=== PATIENT | female | born 1965 | race Caucasian/White ===

== ENCOUNTER → 2019-06-26 17:23 | Outpatient (CLI) | payer BC, SELFPAY ==
--- NOTE | ~2019-06-26 | MM_ITS ---
EXAMINATION: MM screening neal BI w torres HISTORY: Screening mammogram TECHNIQUE: Craniocaudal and mediolateral oblique 3-D tomosynthesis images were obtained and synthetic 2-D images were generated. CAD analysis was submitted and interpreted. COMPARISON: 04/25/2018, 11/24/2016, 12/03/2015 bilateral digital screening mammogram examinations BREAST PARENCHYMAL COMPOSITION: There are scattered areas of fibroglandular density. FINDINGS: There is no evidence of suspicious mass, calcification, or architectural distortion to sugg est malignancy in either breast. There has been no suspicious interval change. IMPRESSION: 1. No mammographic evidence of malignancy. 2. Recommend routine screening mammography in one year. BI-RADS Category 1: Negative Reviewed, dictated and finalized at location A.
== END ==
PROVIDERS: Visit Provider Obstetrics & Gynecology
DX: Z12.31 Encounter for screening mammogram for malignant neoplasm of breast (principal)
CPT/HCPCS: 77063; 77067

== ENCOUNTER → 2020-09-28 16:19 | Outpatient (CLI) | payer BC, SELFPAY ==
--- NOTE | ~2020-09-28 | MM_ITS ---
EXAMINATION: MM screening neal BI w torres HISTORY: Screening mammogram, family history of breast cancer in her mother. TECHNIQUE: Craniocaudal and mediolateral oblique 3-D tomosynthesis images were obtained and synthetic 2-D images were generated. CAD analysis was submitted and interpreted. COMPARISON: 06/26/2019, 04/25/2018, 1117 BREAST PARENCHYMAL COMPOSITION: There are scattered areas of fibroglandular density. FINDINGS: Scattered benign-appearing calcifications are present. There is no evidence of suspicious m ass, calcification, or architectural distortion to suggest malignancy in either breast. There has bee n no suspicious interval change. IMPRESSION: 1. No mammographic evidence of malignancy. 2. Recommend routine screening mammography in one year. BI-RADS Category 2: Benign finding(s). Reviewed, dictated and finalized at location A.
== END ==
PROVIDERS: Visit Provider Obstetrics & Gynecology
DX: Z12.31 Encounter for screening mammogram for malignant neoplasm of breast (principal)
CPT/HCPCS: 77063; 77067

== ENCOUNTER → 2021-04-01 10:04 | Outpatient (CLI) | payer BC, SELFPAY ==
--- NOTE | ~2021-04-01 | XR_ITS ---
EXAMINATION: XR ankle LT min 3V DATE: 04/01/2021 10:25 INDICATION: Left ankle pain, initial encounter TECHNIQUE: Anteroposterior, lateral, mortise, and additional oblique view of the ankle were obtained. COMPARISON: None. FINDINGS: There is linear heterotopic ossification projecting distal to the lateral malleolus. Ankle alignment is normal. There is mild lateral soft tissue swelling the ankle. Posterior and plantar calc aneal enthesophytes are noted. IMPRESSION: 1. Findings consistent with avulsion injury of the lateral malleolus. Reviewed, dictated and finalized at location A. GE ENGINEER
== END ==
DX: M25.572 Pain in left ankle and joints of left foot (principal)
CPT/HCPCS: 73610

== ENCOUNTER → 2021-11-30 14:23 | Outpatient (CLI) | payer BC, SELFPAY ==
--- NOTE | ~2021-11-30 | MM_ITS ---
EXAMINATION: MM screening neal BI w torres HISTORY: Screening mammogram TECHNIQUE: Craniocaudal and mediolateral oblique 3-D tomosynthesis images were obtained and synthetic 2-D images were generated. CAD analysis was submitted and interpreted. COMPARISON: 09/28/2020, 06/26/2019, 04/25/2018 bilateral screening mammogram examinations BREAST PARENCHYMAL COMPOSITION: There are scattered areas of fibroglandular density. FINDINGS: Stable mild fibroglandular asymmetry. Occasional benign calcifications. There is no evidenc e of suspicious mass, calcification, or architectural distortion to suggest malignancy in either [address]. There has been no suspicious interval change. IMPRESSION: 1. No mammographic evidence of malignancy. 2. Recommend routine screening mammography in one year. BI-RADS Category 1: Negative Reviewed, dictated and finalized at location A.
== END ==
PROVIDERS: PCP Obstetrics & Gynecology; Visit Provider Obstetrics & Gynecology
DX: Z12.31 Encounter for screening mammogram for malignant neoplasm of breast (principal)
CPT/HCPCS: 77063; 77067

== ENCOUNTER → 2022-08-01 10:44 | Outpatient (CLI) | payer BC, SELFPAY ==
--- NOTE | ~2022-08-01 | MR_ITS ---
MRI of the right knee Clinical history: Pain Technique: Coronal proton density and proton density-weighted images, sagittal proton-density and T2 fat-sat images, and axial proton-density fat-saturated images were acquired. Findings: Anterior and posterior cruciate ligaments are intact. Medial collateral ligament and the la teral collateral ligament complex are intact. Popliteus tendon is intact. Medial and lateral menisci are intact, without evidence of tear. Articular cartilage is well preserved in the medial lateral compartments, and along the femoral troch suni. There is moderate chondromalacia patella. Bone marrow signals are unremarkable. Extensor mechanism is intact. Small joint effusion present. No Duong's cyst. Impression: Moderate chondromalacia patella. Small joint effusion. Reviewed, dictated and finalized at location . Impression: Moderate chondromalacia patella. Small joint effusion.
== END ==
DX: M25.461 Effusion, right knee (principal); M22.41 Chondromalacia patellae, right knee; G89.29 Other chronic pain
CPT/HCPCS: 73721

== ENCOUNTER 2023-09-13 14:46 | Outpatient (CLI) | payer BC, SELFPAY ==
--- NOTE | ~2023-09-13 | XR_ITS ---
EXAM: XR hip RT min 2V DATE: 09/13/2023 15:34 HISTORY: Right hip pain . COMPARISON: None available. FINDINGS: Normal mineralization. No fracture or dislocation. No lytic or blastic lesion. Mild superi or right hip joint space narrowing. No erosion or periosteal change. Soft tissues within normal limit s. Pelvic lists. IMPRESSION: Mild right hip osteoarthritis. Reviewed, dictated and finalized at location K.
== END 2023-09-13 14:47 ==
DX: M16.11 Unilateral primary osteoarthritis, right hip (principal)
CPT/HCPCS: 73502

== ENCOUNTER 2023-10-31 10:21 | Outpatient (CLI) | payer BC, SELFPAY ==
--- NOTE | ~2023-10-31 | MR_ITS ---
MRI of the right hip Clinical history: Pain Technique: Coronal T1-weighted, T2-weighted, and proton-density fat-sat images, and axial T1-weighted and proton-density fat-sat images were acquired through the pelvis. Coronal T2-weighted images and c oronal, axial, and sagittal proton-density fat-sat images were acquired through the right hip. Findings: There is no fracture or avascular necrosis of either hip. Bone marrow signals of the proxim al femora and pelvic bones are unremarkable. Bilateral hip joint spaces are preserved. Articular cart ilage is relatively well-preserved. No joint effusion seen. No right acetabular labral tear identifie d. No joint effusion. There is probable tendinosis of the right gluteus medius and minimus tendons with early/mild trochant sully bursitis. There is superimposed focal moderate tear of the distal right gluteus medius tendon. N o muscle atrophy or edema present otherwise. IMPRESSION: Probable tendinosis of the right gluteus medius and minimus tendons with moderate grade partial tear of the distal gluteus medius tendon, and associated early/mild right greater trochanteric bursitis. Reviewed, dictated and finalized at location M. IMPRESSION: Probable tendinosis of the right gluteus medius and minimus tendons with modera te grade partial tear of the distal gluteus medius tendon, and associated early /mild right greater trochanteric bursitis.
== END 2023-10-31 10:22 ==
LOC: MICIMG 10:23
DX: M25.551 Pain in right hip (principal)
CPT/HCPCS: 73721

== ENCOUNTER 2023-12-08 10:41 | Outpatient (CLI) | payer BC, SELFPAY ==
--- NOTE | ~2023-12-08 | MR_ITS ---
EXAMINATION: MR knee LT wo con DATE: 12/08/2023 11:30 INDICATION: Left knee pain. Fall. TECHNIQUE: Magnetic resonance imaging (MRI) of the left knee was performed without intravenous contra st. Sequences included axial PD-weighted FS FSE, coronal PD-weighted FSE and PD-weighted FS FSE, sagi ttal PD-weighted FSE, and sagittal T2-weighted FS FSE. COMPARISON: None. FINDINGS: Medial compartment: Medial meniscus is normal. There is shallow partial-thickness cartilage loss of femoral condyle and t ibial condyle. Lateral compartment: There is an undersurface horizontal tear of body of lateral meniscus. There is partial-thickness cart ilage loss of tibial condyle, deep at the central articular surface. There is shallow partial-thickne ss cartilage loss of femoral condyle. Osteophytes are noted. Patellofemoral compartment: There is cartilage surface irregularity of patella and trochlea. Tiny osteophytes are noted. Ligaments and tendons: The anterior and posterior cruciate ligaments are normal. There are changes of prior sprains of media l collateral ligament and fibular collateral ligament characterized by thickening and increased signa l intensity proximally. There is mild patellar tendinopathy. Fluid: There is a small knee joint effusion. There is mild prepatellar and superficial patellar bursitis. IMPRESSION: 1. Moderate chondrosis of lateral compartment and mild chondrosis of medial and patellofemoral compar tments. 2. Tear of lateral meniscus. 3. Small knee joint effusion. Reviewed, dictated and finalized at location A. IMPRESSION: 1. Moderate chondrosis of lateral compartment and mild chondrosis of medial and patellofemoral compartments. 2. Tear of lateral meniscus. 3. Small knee joint effusion.
== END 2023-12-08 10:42 ==
LOC: MICIMG 10:42
DX: M25.462 Effusion, left knee (principal); S83.282A Other tear of lateral meniscus, current injury, left knee, initial encounter; X58.XXXA Exposure to other specified factors, initial encounter
CPT/HCPCS: 73721